=== PATIENT | female | born 1965 | race Caucasian/White ===

== ENCOUNTER → 2025-07-05 | Day surgery (SDC) | payer OTHER ==
[~2025-07-05] VITALS: Ht 149.9 cm; Wt 74.8 kg
[~2025-07-05] MED LIST: ACETAMINOPHEN 1,000MG/100ML PREMIX IV PRN; ATEN100T PO; ATOR10TA69 PO; BENA40TA91 PO; BUPIVACAINE HCL/PF 0.5% (5MG/ML) 10ML ONE; CEFAZOLIN SODIUM 1000MG/VIAL ONE; FAMOTIDINE 20MG/2ML VIAL IV ONE; FAMOTIDINE 20MG/2ML VIAL IV PRN; FENTANYL CITRATE/PF 50MCG/ML 2ML VIAL ONE; GLYCOPYRROLATE 0.2 MG/ML 2ML VIAL ONE; HYDR25TA PO; HYDR50TA40 PO; HYDRALAZINE 20MG/ML VIAL IV PRN; HYDROMORPHONE HCL/PF 1MG/ML INJ IV PRN; HYDROMORPHONE HCL/PF 2MG/ML INJ ONE; LABETALOL 5MG/ML 4ML INJ IV PRN; MEPERIDINE HCL/PF 25MG/ML CPJ IV PRN; METOCLOPRAMIDE HCL 10MG/2ML VIAL ONE; MIDAZOLAM HCL 2 MG/2 ML VIAL ONE; NIFE-49 PO; ONDANSETRON HCL 4MG/2ML INJ IV PRN; ONDANSETRON HCL 4MG/2ML INJ ONE; PANT40TA51 PO; PROPOFOL 200MG/20ML VIAL IV ONE; ROCURONIUM BROMIDE 10MG/ML VIAL 5ML IV ONE; SKIN ADHESIVE 0.7 GM EA TOP ONE; SODIUM CHLORIDE 0.9% 1,000 ML IV SCH; SUCCINYLCHOLINE CHLORIDE 200MG/10ML IV ONE; TRAM50TA3 PO
== END | disposition home or self-care (01) ==
LOC: OR 05:31
PROVIDERS: ATTEND Surgery
DX: K80.10 Calculus of gallbladder with chronic cholecystitis without obstruction (principal); M19.90 Unspecified osteoarthritis, unspecified site; I10 Essential (primary) hypertension; E11.9 Type 2 diabetes mellitus without complications; E78.5 Hyperlipidemia, unspecified; Z79.84 Long term (current) use of oral hypoglycemic drugs; Z79.899 Other long term (current) drug therapy; Z98.890 Other specified postprocedural states
CPT/HCPCS: 47562; 88304; J3010; J0665; J0690; J1308; J3490 ×2; J2765; J2250; J2405; J2704; J0330; J1171; J7030; A4217